=== PATIENT | female | born 1945 | race Caucasian/White ===

== ENCOUNTER 2016-12-23 09:57 | Outpatient (CLI) | payer MEDICARE, OTHER ==
--- NOTE | 2016-12-24 13:57 | DEXA Report ---
DEXA SCAN: 12/23/2016 CLINICAL INDICATION: Postmenopausal. TECHNIQUE: Dual energy x-ray absorptiometry (DXA) was performed on a [email or web address] system. Regions measured are the AP spine, femoral neck, and, if needed, forearm. COMPARISON: None. In accordance with the International Society for Clinical Densitometry (ISCD) guidelines, data from previous exams may be reanalyzed using current recommendations and techniques. This is done to allow a more accurate basis for comparison with the current study. FINDINGS The data for the lumbar spine is as follows: REGION BMD (g/cm/cm) T-SCORE Z-SCORE L1 0.796 -2.8 -1.1 L2 0.973 -1.9 -0.2 L3 1.049 -1.3 0.4 L4 1.182 -0.2 1.5 TOTAL 1.010 -1.4 0.2 NOTE: All evaluable vertebrae are used for classification. The data for the hip is as follows: REGION BMD (g/cm/cm) T-SCORE Z-SCORE Neck 0.750 -2.1 -0.3 TOTAL 0.776 -1.8 -0.3 NOTE: The femoral neck or total proximal femur, whichever is lowest, is used for classification. IMPRESSION: THE WHO CLASSIFICATION BASED ON THE INTERNATIONAL REFERENCE STANDARD IS OSTEOPENIA. THE FRACTURE RISK IS INCREASED. RECOMMENDATION: Patients with diagnosis of osteoporosis or osteopenia should have regular bone mineral density assessment. For those eligible for Medicare, routine testing is allowed once every 2 years. Testing frequency can be increased for patients who have rapidly progressing disease or for those who are receiving medical therapy to restore bone mass. COMMENT: World Health Organization (WHO) definitions for osteoporosis and osteopenia: NORMAL BMD: T-score at -1.0 or higher, fracture risk is low. OSTEOPENIA BMD: T-score between -1.0 and -2.5, fracture risk is increased. OSTEOPOROSIS BMD: T-score at -2.5 or lower, fracture risk high. National Osteoporosis Foundation recommends: 1. Obtain adequate dietary calcium (at least 1200 mg per day) and vitamin D (400 -800 international units per day). 2. Participate, as appropriate, in regular weightbearing and muscle- strengthening exercise. 3. Avoid tobacco use and reduce alcohol and caffeine intake. 4. For more detailed information see the website at www.NOF.org. MTDD
== END 2016-12-23 09:58 | disposition home or self-care (01) ==
LOC: DI 09:57
PROVIDERS: ATTEND Family Medicine
DX: M85.89 Other specified disorders of bone density and structure, multiple sites (principal)
CPT/HCPCS: 77080

== ENCOUNTER 2018-01-14 08:06 | Outpatient (CLI) | payer MEDICARE, OTHER ==
--- NOTE | 2018-01-27 11:45 | Mammography Report ---
Reason: SCREENING MAMMO Procedure Date: 01/14/2018 Accession Number: [id number] / [id number] Procedure: CIRA - Screening Mammo w/Pepito CPT Code: FULL RESULT: EXAM: Screening Mammo w/Pepito DATE: 01/14/2018 8:41 AM CLINICAL HISTORY: 72-year-old female for screening. TECHNIQUE: Bilateral CC and MLO views were obtained. COMPARISON: 08/08/2016. FINDINGS: The breasts demonstrate heterogeneously dense fibroglandular parenchyma bilaterally. Typically benign vascular calcifications and typically benign coarse calcifications are seen bilaterally. No suspicious masses, clustered microcalcifications, or regions of architectural distortion are identified. IMPRESSION: Benign findings RECOMMENDATION: Routine annual screening unless otherwise clinically indicated. BIRADS CATEGORY 2: Benign findings STANDARD QUALIFYING STATEMENTS: 1. This examination was not reviewed with the aid of Computer-Aided Detection (CAD). 2. A negative or benign imaging report should not delay biopsy if clinically suspicious findings are present. Consider surgical consultation if warrented. More than 5% of cancers are not identified by imaging. 3. Dense breasts may obscure an underlying neoplasm. 4. This examination was reviewed with the aid of 3D breast imaging (tomosynthesis).
== END 2018-01-14 08:07 | disposition home or self-care (01) ==
LOC: DI 08:06
DX: Z12.31 Encounter for screening mammogram for malignant neoplasm of breast (principal)
CPT/HCPCS: 77063; 77067

== ENCOUNTER 2019-02-26 11:15 | Outpatient (CLI) | payer MEDICARE, OTHER ==
[2019-02-26 18:34] LABS: BASOPHILS # (AUTO) 0.1 10^3/uL (0.0-0.1); BASOPHILS % (AUTO) 1.3 %; EOSINOPHILS # (AUTO) 0.1 10^3/uL (0.0-0.7); EOSINOPHILS % (AUTO) 0.8 %; HGB - HEMOGLOBIN 12.5 g/dL (12.0-16.0); LYMPHOCYTES % (AUTO) 31.7 %; MEAN CORPUSCULAR HEMOGLOBIN 29.3 pg (27.0-31.0); MEAN CORPUSCULAR HGB CONC 31.1 g/dL (32.0-36.0); MEAN CORPUSCULAR VOLUME 94.1 fL (81.0-99.0); MEAN PLATELET VOLUME 10.2 fL (7.9-10.8); MONOCYTES # (AUTO) 0.3 10^3/uL (0.0-1.0); MONOCYTES % (AUTO) 4.4 %; NEUTROPHILS # (AUTO) 3.8 10^3/uL (1.5-6.6); NEUTROPHILS % (AUTO) 61.6 %; PLT - PLATELET COUNT 316 10^3/uL (130-450); RED BLOOD COUNT 4.27 10^6/uL (4.20-5.40); RED CELL DISTRIBUTION WIDTH 13.3 % (12.0-15.0); WHITE BLOOD COUNT 6.2 x10^3/uL (4.8-10.8)
[2019-02-26 19:01] LABS: ALBUMIN 4.7 g/dL (3.2-5.5); ALBUMIN/GLOBULIN RATIO 1.7 (1.0-2.2); ALKALINE PHOSPHATASE 43 IU/L (42-121); ALT ALANINE AMINOTRANSFERASE 16 IU/L (10-60); AST ASPARTATE AMINOTRANSFERASE 23 IU/L (10-42); BILIRUBIN,TOTAL 0.7 mg/dL (0.2-1.0); BUN - BLOOD UREA NITROGEN 16 mg/dL (6-20); CALCIUM 9.5 mg/dL (8.5-10.3); CARBON DIOXIDE - CO2 27 mmol/L (21-32); CHLORIDE 100 mmol/L (101-111); CHOL/HDL RATIO 2.9 (<4.4); CHOLESTEROL 198 mg/dL; CREATININE 0.8 mg/dL (0.4-1.0); GFR - MDRD 70 (>89); GLUCOSE 101 mg/dL (70-100); HDL CHOLESTEROL 68 mg/dL; LDL CHOLESTEROL,CALCULATED 112 mg/dL; LDL/HDL RATIO 1.6 (<4.4); SODIUM 136 mmol/L (135-145); TOTAL PROTEIN 7.4 g/dL (6.7-8.2); VLDL CHOLESTEROL 18 mg/dL
== END 2019-02-26 23:59 | disposition home or self-care (01) ==
LOC: LAB.WCP 11:15
PROVIDERS: ATTEND Family Medicine
DX: Z79.899 Other long term (current) drug therapy (principal); I10 Essential (primary) hypertension; E78.5 Hyperlipidemia, unspecified
CPT/HCPCS: 36415; 80053; 80061; 83721; 84443; 85025

== ENCOUNTER 2019-03-10 14:04 | Outpatient (CLI) | payer MEDICARE, OTHER ==
--- NOTE | 2019-03-10 15:00 | DEXA Report ---
Reason: DONE DISORDER Procedure Date: 03/10/2019 Accession Number: [id number] / [id number] Procedure: DEX - Dexa Spine and/or Hip CPT Code: Final Report FULL RESULT: EXAM: Dexa Spine and/or Hip DATE: 03/10/2019 2:31 PM CLINICAL HISTORY: Follow-up osteopenia TECHNIQUE: Dual energy x-ray absorptiometry (DXA) was performed on a [employer] System. Regions measured are the AP Spine, femoral neck, and if needed forearm. COMPARISON: 12/23/16. In accordance with the International Society for Clinical Densitometry (ISCD) guidelines, data from previous exams may be reanalyzed using current recommendations and techniques. This is done to allow a more accurate basis for comparison with the current study. FINDINGS: The data for the lumbar spine is as follows: BMD (g/cm/cm) T-SCORE Z-SCORE REGION L1 0.876 -2.1 -0.4 L2 1.050 -1.2 0.5 L3 1.084 -1.0 0.7 L4 1.231 0.3 2.0 TOTAL 1.075 -0.9 0.8 NOTE: All evaluable vertebrae are used for classification The data for the hip is as follows: BMD (g/cm/cm) T-SCORE Z-SCORE REGION Neck 0.841 -1.4 0.5 TOTAL 0.785 -1.8 -0.1 NOTE: The femoral neck or total proximal femur, whichever is lowest, is used for classification. DXA RESULTS SUMMARY: Spine SCAN DATE AGE BMD CHANGE VS CHANGE VS PREVIOUS PREVIOUS % [birth year]10/2019 [age] 1.075 0.065* 6.4* 12/23/[age] 1.010 * Denotes significant change at the 95% confidence level. Denotes dissimilar scan types or analysis methods. DXA RESULTS SUMMARY: Hip SCAN DATE AGE BMD CHANGE VS CHANGE VS PREVIOUS PREVIOUS % [birth year]10/2019 73.6 0.785 0.009 1.2 12/23/[age] 0.776 * Denotes significant change at the 95% confidence level. Denotes dissimilar scan types or analysis methods. IMPRESSION: THE WHO CLASSIFICATION BASED ON THE INTERNATIONAL REFERENCE STANDARD IS OSTEOPENIA, REFERENCE LEFT TOTAL HIP. THE FRACTURE RISK IS INCREASED. Comment: There is been a statistically significant 6.4% increase in lumbar spine bone mineral density since 12/23/16. RECOMMENDATION: Patients with diagnosis of osteoporosis or osteopenia should have regular bone mineral density assessment. For those eligible for Medicare, routine testing is allowed once every 2 years. Testing frequency can be increased for patients who have rapidly progressing disease or for those who are receiving medical therapy to restore bone mass. COMMENT: World Health Organization (WHO) definitions for osteoporosis and osteopenia: NORMAL BMD: T-score at -1.0 or higher, fracture risk is low OSTEOPENIA BMD: T-score between -1.0 and -2.5, fracture risk is increased. OSTEOPOROSIS BMD: T-score at -2.5 or lower, fracture risk is high. National Osteoporosis Foundation recommends: 1. Obtain adequate dietary calcium (at least 1200 mg per day) and vitamin D (400-800 international units per day). 2. Participate, as appropriate, in regular weightbearing and muscle-strengthening exercise. 3. Avoid tobacco use and reduce alcohol and caffeine intake. 4. For more detailed information see the website at www.NOF.org.
== END 2019-03-10 14:05 | disposition home or self-care (01) ==
LOC: DI 14:04
PROVIDERS: ATTEND Family Medicine
DX: M85.89 Other specified disorders of bone density and structure, multiple sites (principal)
CPT/HCPCS: 77080

== ENCOUNTER 2019-03-10 14:05 | Outpatient (CLI) | payer MEDICARE, OTHER ==
--- NOTE | 2019-03-10 15:54 | Mammography Report ---
Reason: ROUTINE MAMMO Procedure Date: 03/10/2019 Accession Number: [id number] / [id number] Procedure: CIRA - Screening Mammo w/Pepito CPT Code: Final Report FULL RESULT: EXAM: Screening Mammo w/Pepito DATE: 03/10/2019 2:58 PM CLINICAL HISTORY: Routine screening TECHNIQUE: (B) - Bilateral CC and MLO views were obtained. COMPARISON: 01/14/2018, 08/08/2016 PARENCHYMAL PATTERN: (D) - The breasts demonstrate heterogeneously dense fibroglandular parenchyma bilaterally. FINDINGS: Right breast: There is a new focal asymmetry in the upper outer right breast 6 to 7 cm from the nipple. There are no other new suspicious masses, calcifications, or areas of distortion. Left breast: New partially obscured asymmetric densities are seen on the CC projection in the medial and lateral breast 4 to 5 cm from the nipple not well appreciated on the MLO projection. No suspicious calcifications or areas of distortion. IMPRESSION: Incomplete examination. BI-RADS category 0. Needs bilateral spot compression and true lateral views. Depending on the results of these ultrasound may be necessary. RECOMMENDATION: (ADDMU) - Additional bilateral views using both Mammography and Ultrasound recommended. BI-RADS CATEGORY: (0) - Incomplete Examination - need additional evaluation. STANDARD QUALIFYING STATEMENTS: 1. This examination was not reviewed with the aid of Computer-Aided Detection (CAD). 2. A negative or benign imaging report should not preclude biopsy if clinically suspicious findings are present. 3. Dense breasts may obscure an underlying neoplasm. 4. This examination was reviewed with the aid of 3D breast imaging (tomosynthesis).
== END 2019-03-10 14:06 | disposition home or self-care (01) ==
LOC: DI 14:05
DX: Z12.31 Encounter for screening mammogram for malignant neoplasm of breast (principal)
CPT/HCPCS: 77063; 77067

== ENCOUNTER 2019-03-23 09:48 | Outpatient (CLI) | payer MEDICARE, OTHER ==
--- NOTE | 2019-03-23 14:00 | Mammography Report ---
Reason: ABNORMAL MAMMOGRAM Procedure Date: 03/23/2019 Accession Number: [id number] / [id number] Procedure: [facility] - Diag Special Views Dig Bilat CPT Code: Final Report FULL RESULT: EXAM: Diag Special Views Dig Bilat DATE: 03/23/2019 10:41 AM CLINICAL HISTORY: Diagnostic examination. The patient is recalled from screening for new bilateral asymmetries. TECHNIQUE: (B) - Bilateral right spot CC, left spot CC, right spot MLO, left spot MLO and bilateral LM images are obtained. Focused bilateral breast ultrasound is performed. COMPARISON: 03/10/2019 through 08/08/2016. PARENCHYMAL PATTERN: (D) - The breast(s) demonstrate(s) heterogeneously dense fibroglandular parenchyma. FINDINGS: The right breast asymmetry dissipates and spot compression on the cc projection partially dissipates and spot compression on the MLO projection with focused right breast ultrasound revealing only normal breast tissue in the right lateral breast, typically benign. The left breast lateral asymmetry is not seen on today's examination in 2-D spot views and no definite 3-D tomographic correlate is identified. Focused left breast ultrasound of the left lateral breast demonstrates only normal breast tissue laterally from the 2 to 3:00 position with no abnormalities identified, typically benign. The medial left breast asymmetry previously seen in CC projection dissipates on spot view and is not confidently localized in LM projection. Focused left breast ultrasound medially demonstrates a wider than tall simple appearing cyst with well defined borders which measures up to 0.3 cm and demonstrates increased through transmission at the 8:00 position 4 cm from the nipple, typically benign. This potentially corresponds to the previous mammographic findings but may also be incidentally detected. There are no suspicious masses, calcifications, or areas of distortion. IMPRESSION: Benign findings. BI-RADS category 2. RECOMMENDATION: (ANNUAL) - Recommend routine annual screening mammography. BI-RADS CATEGORY: (2) - Benign Findings. STANDARD QUALIFYING STATEMENTS: 1. This examination was not reviewed with the aid of Computer-Aided Detection (CAD). 2. A negative or benign imaging report should not preclude biopsy if clinically suspicious findings are present. 3. Dense breasts may obscure an underlying neoplasm. 4. This examination was reviewed with the aid of 3D breast imaging (tomosynthesis).
== END 2019-03-23 09:49 | disposition home or self-care (01) ==
LOC: DI 09:48
PROVIDERS: ATTEND Family Medicine
DX: R92.8 Other abnormal and inconclusive findings on diagnostic imaging of breast (principal); N60.02 Solitary cyst of left breast
CPT/HCPCS: 76642; 77066

== ENCOUNTER 2019-05-11 10:21 | Outpatient (CLI) | payer MEDICARE | END 2019-05-11 10:22 | disposition short-term general hospital (02) | LOC: EMS 10:21 | PROVIDERS: ATTEND Surgery | DX: R07.9 Chest pain, unspecified (principal) | CPT/HCPCS: A0425; A0433 ==

== ENCOUNTER 2019-05-12 19:54 | Outpatient (CLI) | payer MEDICARE | END 2019-05-12 23:59 | disposition short-term general hospital (02) | LOC: EMS 19:54 | PROVIDERS: ATTEND Surgery | DX: R07.9 Chest pain, unspecified (principal); R11.0 Nausea | CPT/HCPCS: A0425; A0427 ==

== ENCOUNTER 2019-11-09 16:45 | Outpatient (CLI) | payer MEDICARE | END 2019-11-09 16:46 | disposition home or self-care (01) | LOC: COV 16:45 | PROVIDERS: ATTEND Family Medicine | DX: R50.9 Fever, unspecified (principal); R53.83 Other fatigue; Z20.828 Contact with and (suspected) exposure to other viral communicable diseases ==

== ENCOUNTER 2019-11-30 16:44 | Outpatient (CLI) | payer MEDICARE ==
--- NOTE | 2019-11-30 16:46 | XRAY Report ---
PROCEDURE: Chest 2 View X-Ray INDICATIONS: DYSPNEA ON EXERTION TECHNIQUE: 2 view(s) of the chest. COMPARISON: None. FINDINGS: Surgical changes and devices: None. Lungs and pleura: Left basilar/retrocardiac opacity is present. There is blunting of the costophrenic angles bilaterally, left greater than right. Mediastinum: Mediastinal contours are normal. Heart size is normal. Bones and chest wall: No suspicious bony abnormalities. Soft tissues appear unremarkable. IMPRESSION: Left basilar/retrocardiac opacity suggestive of some mild effusion. Superimposed areas o f pneumonia and/or atelectasis cannot be excluded. Trace right effusion is noted. Reviewed by: Nayla Morgan MD on 11/30/2019 4:45 PM PDT Approved by: Nayla Morgan MD on 11/30/2019 4:45 PM PDT Station ID: [id number]
[2019-11-30 18:08] LABS: HGB - HEMOGLOBIN 12.7 g/dL (12.0-16.0); MEAN CORPUSCULAR HEMOGLOBIN 30.1 pg (27.0-31.0); MEAN CORPUSCULAR HGB CONC 31.8 g/dL (32.0-36.0); MEAN CORPUSCULAR VOLUME 94.5 fL (81.0-99.0); MEAN PLATELET VOLUME 10.7 fL (7.9-10.8); RED BLOOD COUNT 4.22 10^6/uL (4.20-5.40); RED CELL DISTRIBUTION WIDTH 14.6 % (12.0-15.0); WHITE BLOOD COUNT 10.9 x10^3/uL (4.8-10.8)
[2019-11-30 18:34] LABS: CALCIUM 9.1 mg/dL (8.5-10.3); CREATININE 0.7 mg/dL (0.4-1.0)
== END 2019-11-30 23:59 | disposition home or self-care (01) ==
LOC: DI.WCP 16:44
PROVIDERS: ATTEND Family Medicine
DX: R91.8 Other nonspecific abnormal finding of lung field (principal); J90 Pleural effusion, not elsewhere classified; R06.09 Other forms of dyspnea
CPT/HCPCS: 36415; 71046; 80048; 83880; 84484; 85027

== ENCOUNTER 2019-12-08 09:04 | Emergency (ER) | payer MEDICARE ==
[2019-12-08 09:30] LABS: BASOPHILS # (AUTO) 0.1 10^3/uL (0.0-0.1); BASOPHILS % (AUTO) 0.7 %; EOSINOPHILS # (AUTO) 0.2 10^3/uL (0.0-0.7); EOSINOPHILS % (AUTO) 1.6 %; HGB - HEMOGLOBIN 12.2 g/dL (12.0-16.0); LYMPHOCYTES # (AUTO) 2.3 10^3/uL (1.5-3.5); LYMPHOCYTES % (AUTO) 23.3 %; MEAN CORPUSCULAR HEMOGLOBIN 28.6 pg (27.0-31.0); MEAN CORPUSCULAR HGB CONC 31.4 g/dL (32.0-36.0); MEAN CORPUSCULAR VOLUME 90.9 fL (81.0-99.0); MEAN PLATELET VOLUME 9.2 fL (7.9-10.8); MONOCYTES # (AUTO) 0.7 10^3/uL (0.0-1.0); MONOCYTES % (AUTO) 6.7 %; NEUTROPHILS # (AUTO) 6.6 10^3/uL (1.5-6.6); NEUTROPHILS % (AUTO) 67.2 %; PLT - PLATELET COUNT 506 10^3/uL (130-450); RED BLOOD COUNT 4.27 10^6/uL (4.20-5.40); RED CELL DISTRIBUTION WIDTH 14.3 % (12.0-15.0); WHITE BLOOD COUNT 9.8 x10^3/uL (4.8-10.8)
--- NOTE | 2019-12-08 09:32 | XRAY Report ---
PROCEDURE: Chest 1 View X-Ray INDICATIONS: Chest Pain TECHNIQUE: One view of the chest was acquired. COMPARISON: 11/30/2019 FINDINGS: Surgical changes and devices: None. Lungs and pleura: Mild hyperaeration with flattening of the bilateral hemidiaphragms. Previously see n blunting of the left costophrenic angle has resolved. Minimal streaky bibasilar opacities more pron ounced on the left. No pneumothorax. No focal consolidations. Mediastinum: Mediastinal contours appear normal. Heart size is normal. Bones and chest wall: No suspicious bony lesions. Overlying soft tissues appear unremarkable. IMPRESSION: 1. Previously noted small left pleural effusion has resolved. 2. Minimal bibasilar opacities more pronounced on the left, compatible with atelectasis. 3. Hyperaeration and flattening of the hemidiaphragms suggestive of chronic obstructive pulmonary phy siology. Reviewed by: Perico Landin MD on 12/08/2019 9:31 AM PDT Approved by: Perico Landin MD on 12/08/2019 9:31 AM PDT Station ID: [id number]
[2019-12-08] MEDS ORDERED: ASPIRIN CHEW 81 MG TABLET PO STA (09:42)
[2019-12-08 09:43] LABS: ALBUMIN 3.7 g/dL (3.2-5.5); ALBUMIN/GLOBULIN RATIO 0.9 (1.0-2.2); BILIRUBIN,TOTAL 0.7 mg/dL (0.2-1.0); CREATININE 0.7 mg/dL (0.4-1.0); TOTAL PROTEIN 7.7 g/dL (6.7-8.2)
--- NOTE | 2019-12-08 09:44 | ED Physician Documentation ---
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 She had a coronary angiogram at that time showing minimal plaque of the RCA, 20% stenosis in the LAD and LAD and circumflex. More recently, 2 weeks ago she started having seizures and was started on Keppra. Per her MRI of her head was unremarkable but a positive EEG. Starting last weekend, about 8 or 10 days ago she started having pain under both breasts, right worse than left that is worse with deep breathing. She was seen in the clinic and a chest x-ray was done showing a left pleural effusion and labs were done which were normal including a troponin and a BNP. She was started on Lasix. The pain continues but she is noted to have some episodes of hypotension in cardiac rehab. No pedal edema or calf pain. Review of Systems Ten Systems: 10 systems reviewed and negative Constitutional: reports: Fatigue. denies: Fever, Chills Cardiac: reports: Chest pain / pressure. denies: Palpitations, Pedal edema, Calf pain Respiratory: reports: Dyspnea. denies: Cough PD PAST MEDICAL HISTORY - Past Medical History Cardiovascular: Hypertension Respiratory: None Neuro: None Endocrine/Autoimmune: None GI: None CONTENT PRODUCER: None : None HEENT: None Psych: None Musculoskeletal: None Derm: None - Past Surgical History Past Surgical History: Yes /CONTENT PRODUCER: Tubal ligation - Present Medications Home Medications: Ambulatory Orders Medication Instructions Recorded Confirmed Amoxicillin 500 mg PO TID #21 tablet 01/12/14 Fluticasone [Flonase] 1 sprays BENJAMIN BID #0 bottle 01/12/14 Hydrocodone/Acetaminophen [[place] 1 each PO Q6H PRN #20 tablet 01/12/14 5-325 Tablet] Loratadine [Claritin] 10 01/12/14 01/12/14 Pravastatin Sodium 40 mg PO DAILY 01/12/14 01/12/14 dexAMETHasone [Decadron] 4 mg PO DAILY #5 tablet 01/12/14 Colchicine 0.6 mg PO BID #60 capsule 12/08/19 - Allergies Allergies/Adverse Reactions: Allergies Allergy/AdvReac Type Severity Reaction Status Date / Time ibuprofen Allergy Hallucinati Verified 12/08/19 09:17 ons - Social History Does the pt smoke?: No Smoking Status: Never smoker Does the pt drink ETOH?: No - Immunizations Immunizations are current?: Yes PD ED PE NORMAL - Vitals Vital signs reviewed: Yes - General General: Alert and oriented X 3, No acute distress - HEENT HEENT: PERRL, EOMI - Neck Neck: Supple, no meningeal sign, No bony TTP - Cardiac Cardiac: RRR, No murmur - Respiratory Respiratory: No respiratory distress, Clear bilaterally - Abdomen Abdomen: Non tender - Back Back: No CVA TTP, No spinal TTP - Derm Derm: Normal color, Warm and dry - Extremities Extremities: No edema, No calf tenderness / cord - Neuro Neuro: Alert and oriented X 3, Normal speech Results - Vitals Vitals: Vital Signs - 24 hr 12/08/19 12/08/19 12/08/19 09:11 09:21 11:16 Temperature 36.9 C 36.3 C L Heart Rate 78 75 74 Respiratory 18 17 18 Rate Blood Pressure 129/62 129/62 130/75 O2 Saturation 100 99 97 Oxygen O2 Source Room air - EKG (time done) 0913 Rate: Rate (enter#) (74) Rhythm: NSR, LAE [place]: Normal QRS: Low voltage Ischemia: Non specific changes Computer interpretation: Agree with computer - Labs Labs: Laboratory Tests 12/08/19 12/08/19 12/08/19 09:17 09:17 09:17 WBC 9.8 RBC 4.27 Hgb 12.2 Hct 38.8 MCV 90.9 MCH 28.6 MCHC 31.4 L RDW 14.3 Plt Count 506 H MPV 9.2 Neut # (Auto) 6.6 Lymph # (Auto) 2.3 [place] # (Auto) 0.7 Eos # (Auto) 0.2 Baso # (Auto) 0.1 Absolute Nucleated RBC 0.00 Nucleated RBC % 0.0 Sodium 134 L Potassium 4.3 Chloride 96 L Carbon Dioxide 29 Anion Gap 9.0 BUN 14 Creatinine 0.7 Estimated GFR (MDRD) 82 L Glucose 109 H Calcium 9.0 Total Bilirubin 0.7 AST 16 ALT 18 Alkaline Phosphatase 94 Troponin I High Sens 19.6 H* Total Protein 7.7 Albumin 3.7 Globulin 4.0 Albumin/Globulin Ratio 0.9 L Lipase 29 - Rads (name of study) 1v chest Radiology: EMP read contemporaneously (Previous left pleural effusion has resolved, atelectasis at both bases, flattening of the hemidiaphragms) PD MEDICAL DECISION MAKING - ED course ED course: 74-year-old woman who has had fairly constant chest pain over the last 8 days or so. There is a pleuritic nature to it. She has a history of Takutsobu's cardiomyopathy as discussed in the H&P. There was some concern for PE so a CTPA was done without PE but she does have a small pericardial effusion. Also her troponin today is 19.6 whereas it was 4 last week. The case was discussed by phone with her electrical sign wirer helper, Dr. Scott Ledezma at approximately 10:45 PM. He recommended echocardiography, and if the EF is okay and there is no tamponade physiology he can be discharged home on colchicine, 0.6 mg twice daily as well as ibuprofen 800 mg 3 times daily to follow-up with her. If there is tamponade physiology she will need to be transferred to [place] for definitive management and if there is evidence of worsening heart failure/cardiomyopathy she can be admitted here for medical management. Prelim echo report reviewed, EF 65 to 70%, trace pericardial effusion, Discussed findings with patient's, she has had an allergic reaction to ibuprofen in the past but will take Aleve instead. Departure - Departure Disposition: 01 Home, Self Care Clinical Impression: Chest pain Qualifiers: Chest pain type: unspecified Qualified Code(s): R07.9 - Chest pain, unspecified Pericarditis Qualifiers: Pericarditis type: idiopathic Chronicity: acute Qualified Code(s): I30.0 - Acute nonspecific idiopathic pericarditis Condition: Good Record reviewed to determine appropriate education?: Yes Instructions: ED Chest Pain NonCardiac, ED Chest Pain Pericarditis Prescriptions: Colchicine 0.6 mg PO BID #60 capsule Comments: If you get significant diarrhea with the colchicine you can stop it. Take Aleve as needed for the pain. Follow-up with your electrical sign wirer helper, next available appointment. Return if worsening.
--- NOTE | 2019-12-08 10:32 | CT Report ---
PROCEDURE: ANGIO CHEST W/WO INDICATIONS: chest pain, pleuritic CONTRAST: IV CONTRAST: Optiray 320 ml: 60 PO CONTRAST: *NO PO CONTRAST TECHNIQUE: After the administration of intravenous contrast, 2 mm thick sections acquired from the pulmonary api dayo to the posterior costophrenic angles. 3-dimensional maximum intensity projection (MIP) coronal a nd sagittal reformats were then acquired through the thorax. For radiation dose reduction, the follow ing was used: automated exposure control, adjustment of mA and/or kV according to patient size. COMPARISON: Correlation is made with the accompanying chest radiograph 12/08/2019 FINDINGS: Image quality: Excellent. Pulmonary arteries: Pulmonary arteries are normal in size, and demonstrate no intraluminal filling d efects to suggest central pulmonary embolism. Lungs and pleura: Mild apical scarring can be seen on both sides. No pleural effusions or pneumothora x. Central and peripheral airways are patent. Mediastinum: Heart size is normal. There is a moderate pericardial effusion. No mediastinal or hi lar adenopathy. Thoracic aorta is normal in caliber and enhancement. Esophagus is normal in caliber , without hiatal hernia. Bones and chest wall: No suspicious bony lesions. Ribs and thoracic spine appear intact throughout. Mild pectus excavatum deformity can be seen. Age-appropriate degenerative changes are seen. Mild dex troconvex scoliotic curvature is seen. There is accentuated thoracic kyphosis. The thyroid is no rmal. No axillary or supraclavicular adenopathy. Abdomen: Cholecystectomy clips are seen. Visualized upper abdominal solid organs appear normal in the early arterial phase of enhancement. IMPRESSION: Negative for pulmonary motion. Moderate pericardial effusion. Incidental note is made of: Mild scarring at both apices Mild pectus excavatum deformity Mild dextroconvex scoliotic curvature Cholecystectomy Reviewed by: Soren Sharma MD on 12/08/2019 9:31 AM INES Approved by: Soren Sharma MD on 12/08/2019 9:31 AM INES Station ID: [id number]
[2019-12-08 13:02] VITALS: BP 120/69
[2019-12-08] MEDS ORDERED: IOVERSOL 320 100 ML VIAL IVP ONE (13:37)
== END 2019-12-08 13:10 | disposition home or self-care (01) ==
LOC: ED 09:04
DX: I30.0 Acute nonspecific idiopathic pericarditis (principal); R07.81 Pleurodynia; R79.89 Other specified abnormal findings of blood chemistry; I10 Essential (primary) hypertension; Z86.79 Personal history of other diseases of the circulatory system
CPT/HCPCS: 36415; 71045; 71275; 80053; 83690; 84484; 85025; 93005; 93306; 99284; A9270

== ENCOUNTER 2019-12-28 12:34 | Outpatient (CLI) | payer MEDICARE | END 2019-12-28 12:35 | disposition home or self-care (01) | LOC: LAB 12:34 | PROVIDERS: ATTEND Internal Medicine Cardiovascular Disease | DX: R07.9 Chest pain, unspecified (principal); I10 Essential (primary) hypertension | CPT/HCPCS: 36415; 85651; 86141 ==

== ENCOUNTER 2020-09-27 09:43 | Outpatient (CLI) | payer MEDICARE ==
[2020-09-27 10:00] LABS: BASOPHILS # (AUTO) 0.1 10^3/uL (0.0-0.1); BASOPHILS % (AUTO) 1.1 %; EOSINOPHILS # (AUTO) 0.1 10^3/uL (0.0-0.7); HCT - HEMATOCRIT 39.3 % (37.0-47.0); HGB - HEMOGLOBIN 13.1 g/dL (12.0-16.0); LYMPHOCYTES % (AUTO) 35.6 %; MEAN CORPUSCULAR HEMOGLOBIN 31.2 pg (27.0-31.0); MEAN CORPUSCULAR HGB CONC 33.3 g/dL (32.0-36.0); MEAN CORPUSCULAR VOLUME 93.6 fL (81.0-99.0); MEAN PLATELET VOLUME 9.6 fL (7.9-10.8); MONOCYTES # (AUTO) 0.3 10^3/uL (0.0-1.0); NEUTROPHILS # (AUTO) 3.2 10^3/uL (1.5-6.6); NEUTROPHILS % (AUTO) 56.1 %; PLT - PLATELET COUNT 269 10^3/uL (130-450); RED CELL DISTRIBUTION WIDTH 12.3 % (12.0-15.0); WHITE BLOOD COUNT 5.6 x10^3/uL (4.8-10.8)
[2020-09-27 10:23] LABS: ALBUMIN 4.6 g/dL (3.2-5.5); ALBUMIN/GLOBULIN RATIO 1.5 (1.0-2.2); ALKALINE PHOSPHATASE 88 IU/L (42-121); ALT ALANINE AMINOTRANSFERASE 18 IU/L (10-60); AST ASPARTATE AMINOTRANSFERASE 17 IU/L (10-42); BILIRUBIN,TOTAL 0.9 mg/dL (0.2-1.0); BUN - BLOOD UREA NITROGEN 17 mg/dL (6-20); CALCIUM 9.5 mg/dL (8.5-10.3); CARBON DIOXIDE - CO2 28 mmol/L (21-32); CHLORIDE 99 mmol/L (101-111); CHOL/HDL RATIO 2.6 (<4.4); CHOLESTEROL 144 mg/dL; CREATININE 0.7 mg/dL (0.4-1.0); GFR - MDRD 81 (>89); GLUCOSE 104 mg/dL (70-100); HDL CHOLESTEROL 56 mg/dL; LDL CHOLESTEROL,CALCULATED 72 mg/dL; LDL/HDL RATIO 1.3 (<4.4); SODIUM 137 mmol/L (135-145); TOTAL PROTEIN 7.6 g/dL (6.7-8.2); TRIGLYCERIDES 81 mg/dL; VLDL CHOLESTEROL 16 mg/dL
== END 2020-09-27 09:44 | disposition home or self-care (01) ==
LOC: LAB 09:43
PROVIDERS: ATTEND Family Medicine
DX: I10 Essential (primary) hypertension (principal)
CPT/HCPCS: 36415; 80053; 80061; 83721; 85025

== ENCOUNTER 2020-11-16 11:49 | Outpatient (CLI) | payer MEDICARE ==
[2020-11-16 12:08] LABS: BASOPHILS # (AUTO) 0.1 10^3/uL (0.0-0.1); BASOPHILS % (AUTO) 1.3 %; EOSINOPHILS # (AUTO) 0.1 10^3/uL (0.0-0.7); EOSINOPHILS % (AUTO) 1.3 %; HCT - HEMATOCRIT 41.8 % (37.0-47.0); HGB - HEMOGLOBIN 13.6 g/dL (12.0-16.0); LYMPHOCYTES # (AUTO) 2.8 10^3/uL (1.5-3.5); MEAN CORPUSCULAR HEMOGLOBIN 30.5 pg (27.0-31.0); MEAN CORPUSCULAR HGB CONC 32.5 g/dL (32.0-36.0); MEAN CORPUSCULAR VOLUME 93.7 fL (81.0-99.0); MEAN PLATELET VOLUME 9.9 fL (7.9-10.8); MONOCYTES # (AUTO) 0.3 10^3/uL (0.0-1.0); MONOCYTES % (AUTO) 4.2 %; NEUTROPHILS # (AUTO) 3.6 10^3/uL (1.5-6.6); NEUTROPHILS % (AUTO) 52.1 %; PLT - PLATELET COUNT 308 10^3/uL (130-450); RED BLOOD COUNT 4.46 10^6/uL (4.20-5.40); RED CELL DISTRIBUTION WIDTH 14.3 % (12.0-15.0); WHITE BLOOD COUNT 6.8 x10^3/uL (4.8-10.8)
[2020-11-16 12:26] LABS: ALBUMIN 4.7 g/dL (3.2-5.5); ALBUMIN/GLOBULIN RATIO 1.7 (1.0-2.2); ALKALINE PHOSPHATASE 82 IU/L (42-121); ALT ALANINE AMINOTRANSFERASE 23 IU/L (10-60); AST ASPARTATE AMINOTRANSFERASE 21 IU/L (10-42); BILIRUBIN,TOTAL 0.9 mg/dL (0.2-1.0); BUN - BLOOD UREA NITROGEN 16 mg/dL (6-20); CALCIUM 9.7 mg/dL (8.5-10.3); CARBON DIOXIDE - CO2 28 mmol/L (21-32); CHLORIDE 99 mmol/L (101-111); CHOL/HDL RATIO 2.4 (<4.4); CHOLESTEROL 157 mg/dL; CREATININE 0.7 mg/dL (0.4-1.0); CRP - C-REACTIVE PROTEIN < 1.0 mg/dL (0-1.0); GFR - MDRD 81 (>89); GLUCOSE 107 mg/dL (70-100); HDL CHOLESTEROL 66 mg/dL; LDL CHOLESTEROL,CALCULATED 75 mg/dL; LDL/HDL RATIO 1.1 (<4.4); POTASSIUM 3.6 mmol/L (3.5-5.0); SODIUM 137 mmol/L (135-145); TOTAL PROTEIN 7.4 g/dL (6.7-8.2); TRIGLYCERIDES 80 mg/dL; VLDL CHOLESTEROL 16 mg/dL
[2020-11-16 12:37] LABS: THYROID STIMULATING HORMONE 1.94 uIU/mL (0.34-5.60)
== END 2020-11-16 11:50 | disposition home or self-care (01) ==
LOC: LAB 11:49
PROVIDERS: ATTEND Family Medicine
DX: E78.5 Hyperlipidemia, unspecified (principal); I10 Essential (primary) hypertension; G40.909 Epilepsy, unspecified, not intractable, without status epilepticus; H05.129 Orbital myositis, unspecified orbit
CPT/HCPCS: 36415; 80053; 80061; 83721; 84443; 85025; 85651; 86140

== ENCOUNTER 2021-02-13 08:14 | Outpatient (CLI) | payer MEDICARE ==
--- NOTE | 2021-02-14 14:11 | Mammography Report ---
BILATERAL DIGITAL SCREENING MAMMOGRAM 3D/2D: 02/13/2021 CLINICAL: Routine screening. Comparison is made to exams dated: 03/23/2019 ultrasound, 03/23/2019 ultrasound, 03/23/2019 mammogra m, 03/10/2019 mammogram, 01/14/2018 mammogram, and 08/08/2016 mammogram - [facility] . There are scattered fibroglandular elements in both breasts. There is a 1 cm round asymmetry in the left breast middle depth lateral region seen on the craniocaud al view only. This is increased in size. No other significant masses, calcifications, or other findings are seen in either breast. IMPRESSION: INCOMPLETE: NEEDS ADDITIONAL IMAGING EVALUATION The 1 cm round asymmetry in the left breast is indeterminate. A diagnostic mammogram and ultrasound is recommended. This exam was interpreted at Station ID: [id number]. NOTE: For mammograms, a report in lay terms will be sent to the patient. Approximately 15% of breast malignancies will not be visualized mammographically. In the management of a palpable breast mass, a negative mammogram must not discourage biopsy of a clinically suspicious lesion. Electronically Signed By: Ines manning/:02/13/2021 11:32:34 ACR BI-RADS Category 0: Incomplete 3340F PARENCHYMAL PATTERN: (A) - The breast(s) demonstrate(s) scattered fibroglandular densities. BI-RADS CATEGORY: (0) - 0 Mammo and [place] [id number] Immediate follow-up LATERALITY: (B)
== END 2021-02-13 08:15 | disposition home or self-care (01) ==
LOC: DI 08:14
DX: Z12.31 Encounter for screening mammogram for malignant neoplasm of breast (principal); R92.8 Other abnormal and inconclusive findings on diagnostic imaging of breast

== ENCOUNTER 2021-03-15 08:42 | Outpatient (CLI) | payer MEDICARE ==
--- NOTE | 2021-03-19 11:14 | Mammography Report ---
UNILATERAL LEFT DIGITAL DIAGNOSTIC MAMMOGRAM 3D/2D: 03/15/2021 CLINICAL: Patient returns today to evaluate an asymmetry in the left breast. Comparison is made to exams dated: 02/13/2021 mammogram, 03/23/2019 mammogram, 03/10/2019 mammogram, and 01/14/2018 mammogram - [facility]. There are scattered fibroglandular element s in left breast. There is a 0.7 cm oval focal asymmetry with an obscured margin in the left breast at 2 o'clock middle depth. This is seen in additional views. Mammographically, this lesion has been more or less prom inent over the past few exams dating back to 2018, but overall does not appear significantly changed in size. There also is a 1.4 cm oval focal asymmetry in the left breast at 1 o'clock middle depth. This is no t significantly changed. No other significant masses or calcifications are seen in the breast. IMPRESSION: INCOMPLETE: NEEDS ADDITIONAL IMAGING EVALUATION The 0.7 cm oval focal asymmetry in the left breast at 2 o'clock middle depth is indeterminate. An ul trasound is recommended. The 1.4 cm oval focal asymmetry in the left breast at 1 o'clock middle depth is indeterminate. An ul trasound is recommended. This exam was interpreted at Station ID: [id number]. NOTE: For mammograms, a report in lay terms will be sent to the patient. Approximately 15% of breast malignancies will not be visualized mammographically. In the management of a palpable breast mass, a negative mammogram must not discourage biopsy of a clinically suspicious lesion. Electronically Signed By: Vivek chambers/juan:03/15/2021 10:45:27 ACR BI-RADS Category 0: Incomplete 3340F PARENCHYMAL PATTERN: (A) - The breast(s) demonstrate(s) scattered fibroglandular densities. BI-RADS CATEGORY: (0) - 0 Ultrasound [id number] Immediate follow-up LATERALITY: (L)
--- NOTE | 2021-03-19 11:14 | Ultrasound Report ---
LIMITED ULTRASOUND OF LEFT BREAST AND AXILLA: 03/15/2021 CLINICAL: Patient returns today to evaluate a focal asymmetry in the left breast. Comparison is made to exams dated: 03/15/2021 mammogram, 02/13/2021 mammogram, 03/23/2019 mammogram, 03/10/2019 mammogram, and 01/14/2018 mammogram - [facility]. Color flow and real-time ultrasound of the left breast 12-3 o'clock, and axilla regions were perform ed. Carranza scale images of the real-time examination were reviewed. No significant abnormalities were seen sonographically in the left axilla. Two adjacent ill-defined hypoechoic lesions are seen in the left breast at the 2 o'clock position 3-4 cm from the nipple measuring 0.9 x 1.1 x 0.5 cm and 0.6 x 0.6 x 0.3 cm respectively. These are seen only with harmonics activated, and may represent mildly prominent fat lobules within an area of dense breast tissue rather than true abnormalities. It is unclear if these correspond to the mammographic abnormalities seen in the upper outer quadrant of the left breast. IMPRESSION: PROBABLY BENIGN Two adjacent hypoechoic lesions in the left breast 2 o'clock position resemble normal breast tissue a nd are probably benign. A follow-up left mammogram and an ultrasound in 6 months is recommended to demonstrate stability. This exam was interpreted at Station ID: [id number]. Electronically Signed By: Vivek chambers/juan:03/15/2021 10:58:27 Ultrasound BI-RADS: 3 Probably benign BI-RADS CATEGORY: (3) - 3 Mammo and [place] [id number] 6 month follow-up LATERALITY: (L)
== END 2021-03-15 08:43 | disposition home or self-care (01) ==
LOC: DI 08:42
PROVIDERS: ATTEND Family Medicine
DX: R92.8 Other abnormal and inconclusive findings on diagnostic imaging of breast (principal)

== ENCOUNTER 2021-12-19 10:46 | Outpatient (CLI) | payer MEDICARE ==
--- NOTE | 2021-12-20 09:54 | Ultrasound Report ---
LIMITED ULTRASOUND OF LEFT BREAST: 12/19/2021 CLINICAL: Short term follow up for the left breast. Comparison is made to exams dated: 12/19/2021 mammogram, 03/15/2021 ultrasound, 03/15/2021 mammogram, 02/13/2021 mammogram, 03/23/2019 ultrasound, and 03/23/2019 ultrasound - [facility]. Color flow and real-time ultrasound of the left breast 1-2 o'clock region were performed. Carranza scale images of the real-time examination were reviewed. No significant abnormalities were seen sonographically in the left breast. IMPRESSION: PROBABLY BENIGN No sonographic evidence of malignancy. A follow-up mammogram in 12 months is recommended for possible focal asymmetries in the left breast. Patient will be due for right breast mammogram at that time. Exam findings were conveyed to the patient. This exam was interpreted at Station ID: [id number]. Electronically Signed By: Trevor Cunningham M.D. slc/:12/19/2021 12:00:21 Ultrasound BI-RADS: 3 Probably benign BI-RADS CATEGORY: (3) - 3 Mammogram [id number] 12 month follow-up LATERALITY: (B)
--- NOTE | 2021-12-20 09:54 | Mammography Report ---
BILATERAL DIGITAL DIAGNOSTIC MAMMOGRAM 3D/2D WITH LATEROMEDIAL: 12/19/2021 CLINICAL: 6 month follow up of the left breast, due for bilateral imaging. Comparison is made to exams dated: 03/15/2021 mammogram, 02/13/2021 mammogram, 03/10/2019 mammogram, 01/14/2018 mammogram, 03/15/2021 ultrasound, and 08/08/2016 mammogram - [facility]. Both breasts are heterogeneously dense, which may obscure small masses (category c / 51-75% glandular tissue). There is a focal asymmetry in the left breast at 2 o'clock middle depth. This is less prominent. M ammographically, this finding has been present since 2018. There also is a focal asymmetry in the left breast at 1 o'clock middle depth. This is less prominent . No other significant masses, calcifications, or other findings are seen in either breast. IMPRESSION: INCOMPLETE: NEEDS ADDITIONAL IMAGING EVALUATION The focal asymmetry in the left breast at 2 o'clock middle depth is indeterminate. The focal asymmetry in the left breast at 1 o'clock middle depth is indeterminate. A targeted ultrasound is recommended and will immediately follow. Based on the Tyrer Cuzick model (a risk assessment model) the patients lifetime risk is 2.3% and her 10 year risk is 0.0%. According to the ACR, ACS, and NCCN guidelines, an annual breast MRI exam best g with mammogram is recommended if the patients lifetime risk is 20% or greater. This exam was interpreted at Station ID: [id number]. NOTE: For mammograms, a report in lay terms will be sent to the patient. Approximately 15% of breast malignancies will not be visualized mammographically. In the management of a palpable breast mass, a negative mammogram must not discourage biopsy of a clinically suspicious lesion. Electronically Signed By: Trevor Cunningham M.D. slc/:12/19/2021 11:50:15 ACR BI-RADS Category 0: Incomplete 3340F PARENCHYMAL PATTERN: (D) - The breast(s) demonstrate(s) heterogeneously dense fibroglandular parenchy ma. BI-RADS CATEGORY: (0) - 0 Ultrasound [id number] Immediate follow-up LATERALITY: (B)
== END 2021-12-19 10:47 | disposition home or self-care (01) ==
LOC: DI 10:46
PROVIDERS: ATTEND Nurse Practitioner Family
DX: R92.8 Other abnormal and inconclusive findings on diagnostic imaging of breast (principal)

== ENCOUNTER 2022-09-26 12:49 | Emergency (ER) | payer MEDICARE ==
[2022-09-26 13:13] VITALS: BP 177/72
--- NOTE | 2022-09-26 13:36 | ED Physician Documentation ---
PD HPI FEMALE - Stated complaint Stated Complaint: FEMALE - Chief complaint Chief Complaint: UTI - History obtained from History obtained from: Patient - Additional information Additional information: 6 days ago she went to the bathroom, both a soft bowel movement and urination at the same time. She looked in the bowl and saw some blood. She has not had that repeated since, but the next day, 5 days ago started to develop dysuria. She continued to have this and went to her doctors yesterday and Keflex was begun and she has had 2 doses. She has not improved yet. She does feel somewhat a mildred. No fevers. PD PAST MEDICAL HISTORY - Past Medical History Cardiovascular: Hypertension Respiratory: None Neuro: None Endocrine/Autoimmune: None GI: None SYSTEM SPECIALIST: None : None HEENT: None Psych: None Musculoskeletal: None Derm: None - Past Surgical History Past Surgical History: Yes /SYSTEM SPECIALIST: Tubal ligation - Present Medications Home Medications: Ambulatory Orders Medication Instructions Recorded Confirmed Amoxicillin 500 mg PO TID #21 tablet 01/12/14 Fluticasone [Flonase] 1 sprays BENJAMIN BID #0 bottle 01/12/14 Hydrocodone/Acetaminophen [Alzada 1 each PO Q6H PRN #20 tablet 01/12/14 5-325 Tablet] Loratadine [Claritin] 10 01/12/14 01/12/14 Pravastatin Sodium 40 mg PO DAILY 01/12/14 01/12/14 dexAMETHasone [Decadron] 4 mg PO DAILY #5 tablet 01/12/14 Colchicine 0.6 mg PO BID #60 capsule 12/08/19 - Allergies Allergies/Adverse Reactions: Allergies Allergy/AdvReac Type Severity Reaction Status Date / Time ibuprofen Allergy Hallucinati Verified 09/26/22 13:06 ons - Social History Does the pt smoke?: No Smoking Status: Never smoker Does the pt drink ETOH?: No - Immunizations Immunizations are current?: Yes PD ED PE NORMAL - Vitals Vital signs reviewed: Yes - General General: Alert and oriented X 3, No acute distress - Abdomen Abdomen: Non tender - Back Back: No CVA TTP - Neuro Neuro: Alert and oriented X 3, Normal speech Results - Vitals Vitals: Vital Signs - 24 hr 09/26/22 13:01 Temperature 36.6 C Heart Rate 68 Respiratory 20 Rate Blood Pressure 177/72 H O2 Saturation 100 Oxygen O2 Source Room air - Labs Labs: Laboratory Tests 09/26/22 09/26/22 13:08 13:43 Hgb 12.7 Hct 39.1 Urine Color YELLOW Urine Clarity HAZY Urine pH 6.0 Ur Specific [place] <=1.005 Urine Protein NEGATIVE Urine Glucose (UA) NEGATIVE Urine Ketones NEGATIVE Urine Occult Blood MODERATE H Urine Nitrite NEGATIVE Urine Bilirubin NEGATIVE Urine Urobilinogen 0.2 (NORMAL) Ur Leukocyte Esterase SMALL H Urine RBC 0-5 Urine WBC 11-25 H Ur Squamous Epith Cells FEW Squamous Urine Bacteria Few Ur Microscopic Review INDICATED Urine Culture Comments INDICATED PD Medical Decision Making - ED course ED course: She is cystitis with hemorrhagic symptoms. Although the hemorrhagic symptoms have resolved. She is already on antibiotics and only had 2 doses, she has persistent symptoms but we discussed with her that I would not of expected the antibiotics to work yet necessarily and she needs to give it a little more time. She was worried about potential blood loss but we did an H&H and it was normal. Her urine is persistently positive, but may be sterilized by now but a culture is pending. Departure - Departure Disposition: 01 Home, Self Care Clinical Impression: Cystitis Condition: Good Record reviewed to determine appropriate education?: Yes Instructions: ED UTI Cystitis Female Comments: You do have a bladder infection and your blood counts are normal. We expect the antibiotics to kick in over the next day or so, it is too early to expect you to be feeling much better at this point. The presumption is that your physician ordered a culture and would call you if the antibiotic prescribed is needing to be changed. If not we will perform a culture to, but at this point your urine may be sterilized from the 2 antibiotic doses you have had. Return if worse. Discharge Date/Time: 09/26/22 13:52
[2022-09-26 13:44] LABS: BILIRUBIN,URINE NEGATIVE (NEGATIVE); GLUCOSE, URINE (UA) NEGATIVE (NEGATIVE); KETONES,URINE (UA) NEGATIVE (NEGATIVE); LEUKOCYTE ESTERASE, URINE SMALL (NEGATIVE); NITRITE,URINE NEGATIVE (NEGATIVE); OCCULT BLOOD,URINE MODERATE (NEGATIVE); PROTEIN,URINE NEGATIVE (NEGATIVE); UROBILINOGEN,URINE 0.2 (NORMAL) E.U./dL (NORMAL)
[2022-09-26 13:46] LABS: HCT - HEMATOCRIT 39.1 % (37.0-47.0); HGB - HEMOGLOBIN 12.7 g/dL (12.0-16.0)
[2022-09-26 13:47] LABS: CLARITY,URINE HAZY (CLEAR)
[2022-09-26 13:51] LABS: BACTERIA,URINE Few /HPF (None Seen); RBC,URINE 0-5 /HPF (0-5); SQUAMOUS EPITHELIAL CELL,UR FEW Squamous (<= Few)
== END 2022-09-26 13:52 | disposition home or self-care (01) ==
LOC: ED 12:49
DX: N30.90 Cystitis, unspecified without hematuria (principal)
CPT/HCPCS: 36415; 81001; 81003; 85014; 85018; 87086; 99283

== ENCOUNTER 2023-02-12 08:30 | Day surgery (SDC) | payer MEDICARE ==
[2023-02-12] MEDS ORDERED: LACTATED RINGERS 1,000 ML IV ONE ×2 (08:54→10:34)
--- NOTE | 2023-02-12 09:28 | ANESTHESIA ---
Pre-Anesthesia VS, & Labs - Diagnosis screen - Procedure colonoscopy Vital Signs: Temp Pulse Resp BP Pulse Ox O2 Flow Rate 36.1 C L 76 14 125/80 97 02/12/23 08:49 02/12/23 08:49 02/12/23 08:49 02/12/23 08:49 02/12/23 08:49 Height: 5 ft 5 in Weight (kg): 66.2 kg Body Mass Index: 24.3 BMI Classification: Normal - NPO >8 hours - Is Patient ?: No - Lab Results Lab results reviewed: Yes Home Medications and Allergies Home Medications: Ambulatory Orders Aspirin Chewable [St Vishal Aspirin] 1 tab PO DAILY 02/11/23 Atorvastatin Calcium [Lipitor] 1 tab PO DAILY 02/11/23 Biotin 1,000 mcg PO DAILY 02/11/23 Cholecalciferol [Vitamin D3] 5,000 unit PO DAILY 02/11/23 Levetiracetam [Keppra] 1 tab PO BID 02/11/23 Metoprolol Succinate [Toprol Xl] 12.5 mg PO ONCE 02/11/23 lisinopriL [Zestril] 2 tab PO DAILY 02/11/23 prednisoLONE 1% OPHTH DROPS [Pred Forte 1% Ophth Drops] 1 % TOP QID 02/11/23 Pravastatin Sodium 40 mg PO DAILY 01/12/14 Aspirin Chewable [St Vishal Aspirin] 1 tab PO DAILY 02/11/23 Atorvastatin Calcium [Lipitor] 1 tab PO DAILY 02/11/23 Biotin 1,000 mcg PO DAILY 02/11/23 Cholecalciferol [Vitamin D3] 5,000 unit PO DAILY 02/11/23 Levetiracetam [Keppra] 1 tab PO BID 02/11/23 Metoprolol Succinate [Toprol Xl] 12.5 mg PO ONCE 02/11/23 lisinopriL [Zestril] 2 tab PO DAILY 02/11/23 prednisoLONE 1% OPHTH DROPS [Pred Forte 1% Ophth Drops] 1 % TOP QID 02/11/23 Allergies/Adverse Reactions: Allergies Allergy/AdvReac Type Severity Reaction Status Date / Time ibuprofen Allergy Hallucinati Verified 02/11/23 12:54 ons Anes History & Medical History - Anesthetic History Anesthesia Complications: reports: No previous complications Family history of Anesthesia Complications: Denies Family history of Malignant Hyperthermia: Denies - Medical History Cardiovascular: reports: Hypertension, High cholesterol, Murmur, Other (takotsubo) Pulmonary: reports: None Gastrointestinal: reports: Colon polyps, Hemorrhoids Urinary: reports: Chronic bladder infection Neuro: reports: None Musculoskeletal: reports: None Endocrine/Autoimmune: reports: None Blood Disorders: reports: None Skin: reports: Psoriasis Smoking Status: Never smoker Psychosocial: reports: No issues indicated - Surgical History General: reports: Cholecystectomy, Colonoscopy Gynecologic: reports: Tubal ligation Exam General: Alert, Oriented x3, Cooperative Dental: Dentures full Upper, Dentures full Lower Mouth Openin Fingerbreadth Neck Mobility: Normal Mallampati classification: II Thyromental Distance: 4-6 cm Respiratory: Lungs clear Cardiovascular: Regular rate Plan Anesthesia Type: Total IV Consent for Procedure(s) Verified and Reviewed: Yes Code Status: Attempt Resuscitation ASA classification: 2-Mild systemic disease Is this case an emergency?: No
[2023-02-12] MEDS ORDERED: PROPOFOL 500 MG/50 ML 500 MG/50 ML VIAL ONE (10:16)
[2023-02-12 11:11] VITALS: BP 128/73; O2SAT 96
--- NOTE | 2023-02-12 14:39 | ANESTHESIA POST OP EVALUATION ---
Anesthesia Post Eval - Post Anesthesia Eval Vitals: Last Vital Signs Temp 36.3 C L 02/12/23 11:03 Pulse 72 02/12/23 11:03 Resp 16 02/12/23 11:03 BP 128/73 02/12/23 11:03 Pulse Ox 96 02/12/23 11:03 O2 Flow Rate CV Function Including HR & BP: Stable Pain Control: Satisfactory Nausea & Vomiting: Negative Mental Status: Baseline Respiratory Status: Airway Patent Hydration Status: Satisfactory Anesthesia Complications: None
== END 2023-02-12 08:31 | disposition home or self-care (01) ==
LOC: SDS 08:30
PROVIDERS: ATTEND Surgery
DX: Z12.11 Encounter for screening for malignant neoplasm of colon (principal); K64.1 Second degree hemorrhoids; Z86.010 Personal history of colon polyps; Z80.0 Family history of malignant neoplasm of digestive organs
CPT/HCPCS: G0105; J7120

== ENCOUNTER 2023-03-05 07:45 | Outpatient (CLI) | payer MEDICARE ==
--- NOTE | 2023-03-05 12:23 | Mammography Report ---
BILATERAL DIGITAL DIAGNOSTIC MAMMOGRAM 3D/2D: 03/05/2023 CLINICAL: Patient returns for a 12 month follow up of the left breast, due for bilateral exam. Comparison is made to exams dated: 12/19/2021 mammogram, 03/15/2021 mammogram, 02/13/2021 mammogram, 03/23/2019 mammogram, 03/10/2019 mammogram, and 01/14/2018 mammogram - [facility]. Both breasts are heterogeneously dense, which may obscure small masses (category c / 51-75% glandular tissue). No significant masses, calcifications, or other findings are seen in either breast. Left breast foca l asymmetries previously monitored are not significantly changed and previously had no sonographic co rrelate. These are consistent with normal fibroglandular tissue. No significant changes. IMPRESSION: NEGATIVE Mammograms are stable. There is no mammographic evidence of malignancy. Return to annual mammogram sc reening schedule is recommended. Findings and recommendations were conveyed to the patient at time of exam. Based on the Tyrer Cuzick model (a risk assessment model) the patients lifetime risk is 3.1% and her 10 year risk is 0.0%. According to the ACR, ACS, and NCCN guidelines, an annual breast MRI exam best g with mammogram is recommended if the patients lifetime risk is 20% or greater. This exam was interpreted at Station ID: [id number]. NOTE: For mammograms, a report in lay terms will be sent to the patient. Approximately 15% of breast malignancies will not be visualized mammographically. In the management of a palpable breast mass, a negative mammogram must not discourage biopsy of a clinically suspicious lesion. Electronically Signed By: Ines manning/:03/05/2023 08:39:48 letter sent: No_Letter ACR BI-RADS Category 1: Negative 3341F PARENCHYMAL PATTERN: (D) - The breast(s) demonstrate(s) heterogeneously dense fibroglandular parbeary lio. BI-RADS CATEGORY: (1) - 1 Mammogram [id number] return to screening LATERALITY: (B)
== END 2023-03-05 07:46 | disposition home or self-care (01) ==
LOC: DI 07:45
PROVIDERS: ATTEND Internal Medicine
DX: R92.8 Other abnormal and inconclusive findings on diagnostic imaging of breast (principal); R92.333 Mammographic heterogeneous density, bilateral breasts

== ENCOUNTER 2023-04-03 11:29 | Outpatient (CLI) | payer MEDICARE ==
[2023-04-03 11:46] LABS: BASOPHILS # (AUTO) 0.1 10^3/uL (0.0-0.1); BASOPHILS % (AUTO) 1.4 %; EOSINOPHILS # (AUTO) 0.2 10^3/uL (0.0-0.7); EOSINOPHILS % (AUTO) 2.4 %; HCT - HEMATOCRIT 42.3 % (37.0-47.0); HGB - HEMOGLOBIN 13.4 g/dL (12.0-16.0); LYMPHOCYTES # (AUTO) 2.5 10^3/uL (1.5-3.5); LYMPHOCYTES % (AUTO) 39.2 %; MEAN CORPUSCULAR HEMOGLOBIN 29.8 pg (27.0-31.0); MEAN CORPUSCULAR HGB CONC 31.7 g/dL (32.0-36.0); MEAN CORPUSCULAR VOLUME 94.2 fL (81.0-99.0); MEAN PLATELET VOLUME 10.2 fL (7.9-10.8); MONOCYTES # (AUTO) 0.3 10^3/uL (0.0-1.0); MONOCYTES % (AUTO) 4.7 %; NEUTROPHILS # (AUTO) 3.3 10^3/uL (1.5-6.6); NEUTROPHILS % (AUTO) 52.1 %; PLT - PLATELET COUNT 304 10^3/uL (130-450); RED BLOOD COUNT 4.49 10^6/uL (4.20-5.40); RED CELL DISTRIBUTION WIDTH 13.4 % (12.0-15.0); WHITE BLOOD COUNT 6.4 x10^3/uL (4.8-10.8)
[2023-04-03 12:20] LABS: ALBUMIN 4.9 g/dL (3.2-5.5); ALBUMIN/GLOBULIN RATIO 1.9 (1.0-2.2); ALKALINE PHOSPHATASE 69 IU/L (42-121); ALT ALANINE AMINOTRANSFERASE 17 IU/L (10-60); AST ASPARTATE AMINOTRANSFERASE 17 IU/L (10-42); BILIRUBIN,TOTAL 0.6 mg/dL (0.2-1.0); BUN - BLOOD UREA NITROGEN 12 mg/dL (6-20); CALCIUM 9.8 mg/dL (8.5-10.3); CARBON DIOXIDE - CO2 29 mmol/L (21-32); CHLORIDE 104 mmol/L (101-111); CHOL/HDL RATIO 2.2 (<4.4); CHOLESTEROL 151 mg/dL; CREATININE 0.6 mg/dL (0.6-1.3); GFR - MDRD 97 (>89); GLUCOSE 106 mg/dL (74-104); HDL CHOLESTEROL 69 mg/dL; LDL CHOLESTEROL,CALCULATED 60 mg/dL; LDL/HDL RATIO 0.9 (<4.4); POTASSIUM 3.7 mmol/L (3.5-4.5); SODIUM 138 mmol/L (135-145); TOTAL PROTEIN 7.5 g/dL (6.4-8.9); TRIGLYCERIDES 112 mg/dL (48-352); VLDL CHOLESTEROL 22 mg/dL
[2023-04-03 12:22] LABS: THYROID STIMULATING HORMONE 2.03 uIU/mL (0.34-5.60)
[2023-04-03 12:36] LABS: ESTIMATED AVERAGE GLUCOSE 123 mg/dL (70-100); HEMOGLOBIN A1c% 5.9 % (4.27-6.07)
[2023-04-04 07:10] LABS: VITAMIN D 25-HYDROXY 68.5 ng/mL (30.0-100.0)
[2023-04-07 14:08] LABS: LEVETIRACETAM (KEPPRA) 11.6 ug/mL (10.0-40.0)
== END 2023-04-03 11:30 | disposition home or self-care (01) ==
LOC: LAB 11:29
PROVIDERS: ATTEND Internal Medicine
DX: Z00.00 Encounter for general adult medical examination without abnormal findings (principal); H18.899 Other specified disorders of cornea, unspecified eye; R29.6 Repeated falls; R03.0 Elevated blood-pressure reading, without diagnosis of hypertension; K64.4 Residual hemorrhoidal skin tags; Z80.0 Family history of malignant neoplasm of digestive organs; Z86.010 Personal history of colon polyps; R73.01 Impaired fasting glucose; G47.00 Insomnia, unspecified; N64.59 Other signs and symptoms in breast; L60.3 Nail dystrophy; L60.8 Other nail disorders; B00.50 Herpesviral ocular disease, unspecified; N39.0 Urinary tract infection, site not specified; R56.9 Unspecified convulsions; Z11.59 Encounter for screening for other viral diseases; Z79.899 Other long term (current) drug therapy; I51.81 Takotsubo syndrome
CPT/HCPCS: 36415; 80053; 80061; 80177; 82306; 83036; 83721; 84443; 85025

== ENCOUNTER 2023-04-28 08:45 | Outpatient (CLI) | payer MEDICARE ==
--- NOTE | 2023-04-28 13:33 | Ultrasound Report ---
LIMITED ULTRASOUND OF LEFT BREAST: 04/28/2023 CLINICAL: Occasional left breast pain. Comparison is made to exams dated: 03/05/2023 mammogram, 12/19/2021 ultrasound, 12/19/2021 mammogram, 03/15/2021 ultrasound, 03/15/2021 mammogram, and 02/13/2021 mammogram - [facility]. Color flow ultrasound of the left breast retroareolar was performed on the areas of interest. Carranza scale images of the real-time examination were reviewed. IMPRESSION: NEGATIVE There is no sonographic evidence of malignancy. There is no sonographic abnormality seen in the left breast to correspond with the intermittent, now resolved pain, however, clinical followup is recommended. Return to annual mammogram screening schedule is recommended. Future imaging is recommended as follo ws: 03/06/2024 screening mammogram. This exam was interpreted at Station ID: [id number]. Electronically Signed By: Beryl perez/:04/28/2023 09:32:25 Ultrasound BI-RADS: 1 Negative BI-RADS CATEGORY: (1) - 1 Mammogram [id number] return to screening LATERALITY: (B)
== END 2023-04-28 08:46 | disposition home or self-care (01) ==
LOC: DI 08:45
PROVIDERS: ATTEND Internal Medicine
DX: N64.4 Mastodynia (principal)